=== PATIENT | male | born 1985 | race American Indian/Alaskan Native ===

== ENCOUNTER 2020-12-01 21:34 | Emergency (ER) | payer MEDICAID ==
--- NOTE | 2020-12-01 21:42 | Emergency Department Report ---
ED Upper Extremity Inj HPI - General Stated Complaint: RT HAND INJURY Time Seen by Provider: 12/01/20 21:34 - History of Present Illness MD Complaint: Injury to:: right, hand -: Sudden, days(s) Other Extremity Injury: Hand: Right (Swollen and tender) Handedness: left Place: home Improves With: none Worsens With: none Context: direct blow (Punched a wall) Associated Symptoms: denies other symptoms - Related Data Previous Rx's Medication Instructions Recorded Last Taken Type Acetaminophen/Codeine [Tylenol 1 tab PO Q6H PRN #10 tab 12/01/20 Unknown Rx /Codeine # 3 tab] Ketorolac [Toradol] 10 mg PO Q6H PRN #15 tablet 12/01/20 Unknown Rx Allergies Allergy/AdvReac Type Severity Reaction Status Date / Time lorazepam [From Ativan] AdvReac Unknown Verified 12/01/20 21:48 ED Review of Systems ROS: Stated complaint: RT HAND INJURY Other details as noted in HPI Comment: All other systems reviewed and negative ED Past Medical Hx - Medications Home Medications: Home Medications Medication Instructions Recorded Confirmed Last Taken Type Acetaminophen/Codeine [Tylenol 1 tab PO Q6H PRN #10 tab 12/01/20 Unknown Rx /Codeine # 3 tab] Ketorolac [Toradol] 10 mg PO Q6H PRN #15 tablet 12/01/20 Unknown Rx ED Physical Exam - General General appearance: alert, in no apparent distress - Head Head exam: Present: atraumatic, normocephalic - Eye Eye exam: Present: normal appearance, PERRL, EOMI Pupils: Present: normal accommodation - ENT ENT exam: Present: normal exam, normal orophraynx, mucous membranes moist - Neck Neck exam: Present: normal inspection, full ROM - Respiratory Respiratory exam: Present: normal lung sounds bilaterally. Absent: respiratory distress, rales, rhonchi - Cardiovascular Cardiovascular Exam: Present: regular rate, normal rhythm. Absent: systolic murmur, diastolic murmur, rubs, gallop - GI/Abdominal GI/Abdominal exam: Present: soft, normal bowel sounds - Rectal Rectal exam: Present: deferred - Extremities Exam Extremities exam: Present: normal inspection, tenderness - Expanded Upper Extremity Exam Right Hand Wrist exam: Present: tenderness, swelling. Absent: deformity, crepidus, dislocation, amputation, nail avulsion, subungual hematoma Hand L/R Back: 1 - Area of swelling and pain - Back Exam Back exam: Present: normal inspection - Neurological Exam Neurological exam: Present: alert, oriented X3 - Psychiatric Psychiatric exam: Present: normal affect, normal mood - Skin Skin exam: Present: warm, dry, intact, normal color. Absent: rash ED Course Vital Signs 12/01/20 21:46 Temperature 97.6 F Pulse Rate 96 H Respiratory 17 Rate Blood Pressure 110/71 O2 Sat by Pulse 94 Oximetry - Orthopedic Splinting/Casting Injury #1 Side: right Upper Extremity Injury Location: hand Upper Extremity Immobilizer: ulnar gutter ED Medical Decision Making - Radiology Data Radiology results: report reviewed [facility] [address] [place] [address] XRay Report Signed Patient: JAYCE STEPHENS MR#: [id number] : 1985 Acct:[id number] Age/Sex: 35 / M ADM Date: 12/01/20 Loc: ED Attending Dr: Ordering Physician: BRAD BONDS Date of Service: 12/01/20 Procedure(s): XR hand 3+V RT Accession Number(s): [id number] cc: BRAD BONDS Fluoro Time In Minutes: RIGHT HAND 3 VIEW(S) INDICATION / CLINICAL INFORMATION: trauma, pain and swelling COMPARISON: None available. FINDINGS: BONES / JOINT(S): Acute transverse fracture through the base of the little finger metacarpal head with minimal palmar angulation and medial displacement. No significant arthritis. SOFT TISSUES: Moderate edema at the ulnar side of the hand. ADDITIONAL FINDINGS: None. IMPRESSION: 1. Acute boxer's fracture, as above. Signer Name: Linus Bell MD Signed: 12/01/2020 10:20 PM Workstation Name: [id number] Transcribed By: RH Dictated By: LINUS BELL III Electronically Authenticated By: LINUS BELL III Signed Date/Time: 12/01/202219 DD/ 16 TD/TT: Critical care attestation.: If time is entered above; I have spent that time in minutes in the direct care of this critically ill patient, excluding procedure time. ED Disposition Clinical Impression: Closed boxer's fracture Disposition: DC-01 TO HOME OR SELFCARE Is pt being admited?: No Does the pt Need Aspirin: No Condition: Stable Instructions: Cast or Splint Care, Adult, [id number], Boxer's Fracture Prescriptions: Ketorolac [Toradol] 10 mg PO Q6H PRN #15 tablet PRN Reason: Pain Acetaminophen/Codeine [Tylenol /Codeine # 3 tab] 1 tab PO Q6H PRN #10 tab PRN Reason: severe pain Referrals: LINUS HENRY MD [Staff Physician] - 3-5 Days
[2020-12-01 21:48] VITALS: BP 110/71
--- NOTE | 2020-12-01 22:25 | XRay Report ---
RIGHT HAND 3 VIEW(S) INDICATION / CLINICAL INFORMATION: trauma, pain and swelling COMPARISON: None available. FINDINGS: BONES / JOINT(S): Acute transverse fracture through the base of the little finger metacarpal head wit h minimal palmar angulation and medial displacement. No significant arthritis. SOFT TISSUES: Moderate edema at the ulnar side of the hand. ADDITIONAL FINDINGS: None. IMPRESSION: 1. Acute boxer's fracture, as above. Signer Name: Linus Bell MD Signed: 12/01/2020 10:20 PM Workstation Name: [id number]
== END 2020-12-01 23:18 | disposition home or self-care (01) ==
LOC: ED 21:34
DX: S62.606A Fracture of unspecified phalanx of right little finger, initial encounter for closed fracture (principal); Z88.8 Allergy status to other drugs, medicaments and biological substances; Z79.899 Other long term (current) drug therapy; X58.XXXA Exposure to other specified factors, initial encounter; Y93.89 Activity, other specified; Y92.009 Unspecified place in unspecified non-institutional (private) residence as the place of occurrence of the external cause; Y99.8 Other external cause status

== ENCOUNTER 2021-05-04 12:04 | Emergency (ER) | payer MEDICAID ==
[2021-05-04 12:16] VITALS: BP 121/82
--- NOTE | 2021-05-04 13:11 | Emergency Department Report ---
HPI - General Chief Complaint: Psych Time Seen by Provider: 05/04/21 12:35 - HPI HPI: This is a 35-year-old -[place] male who presents to the emergency department, through triage, requesting that he wants to "talk to someone, an MD or a professional." Patient admits to a history of bipolar disorder. He then says "some of the great leaders like Yuri Dowd and Jagjit Yates probably had bipolar disorder, but they were great leaders." He also says that he wants to talk to someone regarding the Covid vaccination, which he says that he got. Patient denies any hallucinations, suicidal or homicidal ideations. Patient is a tobacco smoker. He denies any illicit drug use or any history of alcohol dependence. Patient says that he takes Seroquel and says he is compliant with the medication. Patient has only been to our emergency department 1 time previously, at the beginning of this year, for a hand injury. ED Past Medical Hx - Past Medical History Hx Psychiatric Treatment: Yes (bipolar) - Social History Smoking Status: Never Smoker Substance Use Type: Alcohol - Medications Home Medications: Home Medications Medication Instructions Recorded Confirmed Last Taken Type Acetaminophen/Codeine [Tylenol 1 tab PO Q6H PRN #10 tab 12/01/20 Unknown Rx /Codeine # 3 tab] Ketorolac [Toradol] 10 mg PO Q6H PRN #15 tablet 12/01/20 Unknown Rx ED Review of Systems ROS: Stated complaint: PSYCH Other details as noted in HPI Comment: All other systems reviewed and negative Constitutional: denies: chills, fever Eyes: denies: eye pain, vision change ENT: denies: ear pain, throat pain Respiratory: denies: cough, shortness of breath Cardiovascular: denies: chest pain, palpitations Gastrointestinal: denies: abdominal pain, vomiting Musculoskeletal: denies: back pain, arthralgia Neurological: denies: headache, weakness Psychiatric: denies: auditory hallucinations, visual hallucinations, homicidal thoughts, suicidal thoughts Physical Exam - Physical Exam Vital Signs: Vital Signs 05/04/21 12:11 Temperature 98.6 F Pulse Rate 70 Respiratory 18 Rate Blood Pressure 121/82 O2 Sat by Pulse 95 Oximetry Physical Exam: GENERAL: The patient is well-developed well-nourished. HENT: Normocephalic. Atraumatic. Patient has moist mucous membranes. EYES: Extraocular motions are intact. NECK: Supple. Trachea is midline. CHEST/LUNGS: Clear to auscultation. There is no respiratory distress noted. HEART/CARDIOVASCULAR: Regular. There is no tachycardia. There is no murmur. ABDOMEN: Abdomen is soft, nontender. Patient has normal bowel sounds. There is no abdominal distention. SKIN: Skin is warm and dry. NEURO: The patient is awake, alert, and oriented. The patient is cooperative. The patient has no focal neurologic deficits. Normal speech. MUSCULOSKELETAL: There is no tenderness or deformity. There is no limitation range of motion. PSYCH: The patient has some tangential thoughts but is easily redirectable. ED Course Vital Signs 05/04/21 12:11 Temperature 98.6 F Pulse Rate 70 Respiratory 18 Rate Blood Pressure 121/82 O2 Sat by Pulse 95 Oximetry ED Medical Decision Making - Lab Data Result diagrams: 05/04/21 12:41 05/04/21 12:41 Lab Results 05/04/21 05/04/21 05/04/21 Range/Units 12:41 12:41 12:41 WBC 7.1 (4.5-11.0) K/mm3 RBC 4.24 (3.65-5.03) M/mm3 Hgb 13.3 (11.8-15.2) gm/dl Hct 38.7 (35.5-45.6) % MCV 91 (84-94) fl MCH 31 (28-32) pg MCHC 34 (32-34) % RDW 14.9 (13.2-15.2) % Plt Count 264 (140-440) K/mm3 Lymph % (Auto) 29.4 (13.4-35.0) % [place] % (Auto) 8.6 H (0.0-7.3) % Eos % (Auto) 2.5 (0.0-4.3) % Baso % (Auto) 1.3 (0.0-1.8) % Lymph # (Auto) 2.1 (1.2-5.4) K/mm3 [place] # (Auto) 0.6 (0.0-0.8) K/mm3 Eos # (Auto) 0.2 (0.0-0.4) K/mm3 Baso # (Auto) 0.1 (0.0-0.1) K/mm3 Seg Neutrophils % 58.2 (40.0-70.0) % Seg Neutrophils # 4.2 (1.8-7.7) K/mm3 Sodium 141 (137-145) mmol/L Potassium 3.9 (3.6-5.0) mmol/L Chloride 103.8 (98-107) mmol/L Carbon Dioxide 28 (22-30) mmol/L Anion Gap 13 mmol/L BUN 12 (9-20) mg/dL Creatinine 0.8 (0.8-1.3) mg/dL Estimated GFR > 60 ml/min BUN/Creatinine Ratio 15 % Glucose 85 (75-100) mg/dL Calcium 9.9 (8.4-10.2) mg/dL Plasma/Serum Alcohol < 0.01 (0-0.07) % - Medical Decision Making This patient presented to the emergency department for what appears to be a mental health evaluation. He has a history of bipolar disorder. He is oriented, AAO x3. He is calm and cooperative. The patient says that he was here to "talk to someone" about his mental health. He does display some t angential or random thoughts, but does appear redirectable. He denies any hallucinations. He denies any suicidal or homicidal ideations. He was seen by the psychiatric motel maid who agrees that the patient does not appear to require a 1013 or inpatient stabilization. The patient is on medication for which he says he is compliant. He has good outpatient follow-up with a psychiatrist. Patient's labs have been unremarkable including CBC, metabolic panel and blood alcohol level. The patient has been discharged home and instructed to return to the emergency department with any worsening of his symptoms, thoughts of harming himself or others, or with any acute distress. Critical Care Time: No Critical care attestation.: If time is entered above; I have spent that time in minutes in the direct care of this critically ill patient, excluding procedure time. ED Disposition Clinical Impression: Bipolar disorder Qualifiers: Active/Remission status: remission status unspecified Qualified Code(s): F31.9 - Bipolar disorder, unspecified Disposition: DC-01 TO HOME OR SELFCARE Is pt being admited?: No Condition: Good Instructions: Managing Bipolar Disorder Additional Instructions: Professional and Agency Contacts To help [facility](28/05) [place] Crisis Line: Suicide Prevention Line: Crisis Text Line: Text START to [phone] Emergency: 911 Outpatient COMMUNITY Behavioral Health Resources: MUNIR: [facility] [address] [place], [place] [address] TRAE: [facility]= [address] [place] [address] EDWARD: [facility] - [address] [place] [address] Sunday thru Sunday - 8am - 5pm ALBER: [facility] Address: [address] [place] [address] PETERSON: [facility] Address: [address] [place] [address] Sunday thru Sunday- 7am-2pm [facility] Address: [address] [place] [address] Sunday thru Sunday: 8:30AM-5PM In case of an emergency, please contact the following numbers: [place] Crisis and Access Line: Number: Crisis Text Line: (Text START) Number: 314956 Suicide Prevention Line: Number: Emergency Number: 911 SUBSTANCE ABUSE PROGRAMS: [facility]: Location: [place], [place] [facility] Address: [address] [place] [address] [facility]: Address: [address] [place] [address] [facility]: Address: [address] [place] [address] [facility] Community: Address: [address] [place] [address] [facility] Address: [address] [place] [address]. Please contact above numbers to attempt placement into free based program. Medicaid Programs: [facility]: Address: [address] [place] [address], [place] [address] [facility]: Address: [address] [place] [id number] Referrals: Psychiatrist, Your [Other] - 2-3 Days PRIMARY CARE, [Primary Care Provider] - 2-3 Days
[2021-05-04 13:42] LABS: Basophils # (Auto) 0.1 K/mm3 (0.0-0.1); Basophils % (Auto) 1.3 % (0.0-1.8); Eosinophils # (Auto) 0.2 K/mm3 (0.0-0.4); Eosinophils % (Auto) 2.5 % (0.0-4.3); Hematocrit 38.7 % (35.5-45.6); Hemoglobin 13.3 gm/dl (11.8-15.2); Lymphocytes # (Auto) 2.1 K/mm3 (1.2-5.4); Lymphocytes % (Auto) 29.4 % (13.4-35.0); Mean Corpuscular HGB Conc 34 % (32-34); Mean Corpuscular Volume 91 fl (84-94); Monocytes # (Auto) 0.6 K/mm3 (0.0-0.8); Monocytes % (Auto) 8.6 % (0.0-7.3); Platelet Count 264 K/mm3 (140-440); Red Blood Count 4.24 M/mm3 (3.65-5.03); Red Cell Distribution Width 14.9 % (13.2-15.2)
[2021-05-04 13:44] LABS: BUN/Creatinine Ratio 15; Blood Urea Nitrogen 12 mg/dL (9-20); Calcium 9.9 mg/dL (8.4-10.2); Hemolysis Index 5
== END 2021-05-04 15:30 | disposition home or self-care (01) ==
LOC: ED 12:04
DX: F31.9 Bipolar disorder, unspecified (principal); Z79.899 Other long term (current) drug therapy; Z88.8 Allergy status to other drugs, medicaments and biological substances
CPT/HCPCS: 36415; 80048; 80320; 85025; G0480

== ENCOUNTER 2021-05-16 01:41 | Emergency (ER) | payer MEDICAID | END 2021-05-16 05:58 | disposition left against medical advice (07) | LOC: ED 01:41 | DX: Z00.8 Encounter for other general examination (principal); Z53.21 Procedure and treatment not carried out due to patient leaving prior to being seen by health care provider ==